=== PATIENT | female | born 1955 | race Caucasian/White ===

== ENCOUNTER 2017-10-22 18:47 | Observation (INO) | payer OTHER ==
[~2017-10-22] VITALS: Ht 157.5 cm; Wt 93.8 kg
[~2017-10-22 18:47] MED LIST: ALBU.083IS; ALBU.083IS IH; ALBU90OI; ALBU90OI6 INH; ALKA-SELTZER; AVANDAMET; AZIT250 PO; Advair Hfa 230-12 GM INH; BUDE.5 INH; CEFP200 PO; CETI10; CIPR500; CODGUAEL PO; Crutch1 EACH MISC; FLUSAL5005; FLUSAL5005 INH; FLUTICASONE FUROATE; Flecainide Acet50 MG PO; Flonase 0.05% N16 GM; GABA300 PO; GLIP10ER PO; GLIP5 PO; GUAI100SY PO; GUAIFENESIN-CODE5 ML; Humalog100 UNIT/1 SC; INS70/30PN; INSLI100I SC; INSUASPI SC; INSULANI SC; INSULANPEN SC; LEVFLO500 PO; LEVSOD75 PO; LOSA25 PO; LOSA50 PO; Lantus100 UNIT/1 SC; METF500; METF500 PO; METF500C; METF500C PO; MONT10T PO; MUPI1NAS; Norco 5-325 Ta1 EACH PO; OMEPRAZOLE MAGN20 MG PO; Omeprazole20 M1 PO; PRED10 PO; PRED20 PO; PSEU120ER PO; ROSI4; SUCR1SU PO; Synthroid175 MCG PO; TIOT18 INH; TOUJEO SOL300 UNIT/1 SC; TRULICITY0.75 MG/0. SC; Tambocor100 MG PO; Tylenol325 MG PO; VERA180ER PO; VERA240ER PO; VERA80 PO; Vanadom350 MG PO; Ventolin Soln3 ML INH; XARELTO20 MG PO; ZYRTEC10 M2 PO; Zithromax500 MG PO; [UNRECOGNIZED DRUG - OTHER]; [UNRECOGNIZED DRUG - OTHER] PO
[2017-10-22 19:20] LABS: Calcium, Ionized (POC) 1.16 mmol/L (1.10-1.46); Chloride (POC) 101 mmol/L (98-108); Creatinine (POC) 1.5 mg/dL (0.6-1.0); Glucose (ISTAT POC) 410 mg/dL (70-99); Hemoglobin (POC) 11.6 g/dL (12.0-16.0); Potassium (POC) 5.7 mmol/L (3.5-5.5); Sodium (POC) 136 mmol/L (135-148); Total CO2 (POC) 23 mmol/L (21-32)
[2017-10-22 19:48] LABS: Alanine Aminotransfer (ALT/SGP 33 U/L (12-78); Albumin, Blood 3.2 g/dL (3.4-5.0); Albumin/Globulin Ratio 0.9 (0.8-1.8); Alk Phos 49 U/L (50-136); Anion Gap 8 mmol/L (6-16); Aspartate Aminotrans (AST/SGOT 28 U/L (12-37); Bilirubin, Total 0.3 mg/dL (0.1-1.0); Blood Urea Nitrogen 34 mg/dL (8-24); Bun/Creatinine Ratio 22.4 (12.0-20.0); CO2, Blood 23 mmol/L (21-32); Calcium, Blood 8.7 mg/dL (8.5-10.1); Chloride, Blood 104 mmol/L (98-108); Creatinine, Blood 1.52 mg/dL (0.40-1.00); Globulin, Blood 3.7 g/dL (2.2-4.0); Glomerular Filtration Rate 37 (60-); Glucose, Blood 409 mg/dL (70-99); Potassium, Blood 5.7 mmol/L (3.5-5.5); Sodium, Blood 135 mmol/L (136-145); Total Protein, Blood 6.9 g/dL (6.4-8.2); Troponin I <0.015 ng/mL (0.000-0.040)
[2017-10-22 19:50] LABS: BASOPHILS ABSOLUTE AUTO 0.09 K/mm3 (0.00-0.23); BASOPHILS PERCENT AUTO 1 % (0-2); EOSINOPHILS ABSOLUTE AUTO 0.24 K/mm3 (0.00-0.68); EOSINOPHILS PERCENT AUTO 2 % (0-6); Hematocrit 34.4 % (33.0-51.0); Hemoglobin 11.6 g/dL (11.5-16.0); IMMATURE GRAN ABSOLUTE AUTO 0.09 K/mm3 (0.00-0.10); IMMATURE GRAN PERCENT AUTO 1 % (0-1); LYMPHOCYTES ABSOLUTE AUTO 2.04 K/mm3 (0.84-5.20); LYMPHOCYTES PERCENT AUTO 18 % (21-46); MONOCYTES ABSOLUTE AUTO 0.47 K/mm3 (0.16-1.47); MONOCYTES PERCENT AUTO 4 % (4-13); Mean Corpuscular HGB 29.5 pg (26.0-34.0); Mean Corpuscular HGB Conc 33.7 g/dL (31.5-36.5); Mean Corpuscular Volume 88 fL (80-100); NEUTROPHILS ABSOLUTE AUTO 8.63 K/mm3 (1.96-9.15); NEUTROPHILS PERCENT AUTO 75 % (41-73); Platelet Count 265 K/mm3 (150-400); RDW Standard Deviation 41.4 fL (35.1-46.3); Red Blood Cell Count 3.93 M/mm3 (3.80-5.20); White Blood Cell Count 11.56 K/mm3 (4.00-11.30)
[2017-10-22] MEDS ORDERED: Advair Hfa 230-12 GM INH (21:53)
[2017-10-22] MEDS ORDERED: Synthroid/Levo0.2 MG PO (21:53)
[2017-10-22] MEDS ORDERED: ZILEUTON PO (21:53)
[2017-10-22] MEDS ORDERED: LEVO-T25 MCG PO (21:54)
[2017-10-23 01:22] LABS: Source, Urine Clean Catch
[2017-10-23 01:30] LABS: Bilirubin, Urine Neg (Neg); Blood, Urine 1+ (Neg); Glucose Qualitative, Urine 4+ (Neg); Ketones, Urine Neg (Neg); Leukocyte Esterase, Urine Neg (Neg); Nitrite, Urine Pos (Neg); Protein, Urine 2+ (Neg); Specific Gravity, Urine 1.015 (1.003-1.022); Urobilinogen, Urine NORM (Normal)
[2017-10-23 01:48] LABS: Appearance, Urine Hazy (Clear); Bacteria Many /hpf; Color, Urine Yellow (P-Yellow); Red Blood Cells, Urine 0-2 /hpf (0-2); Squamous Epithelial Cells Few /hpf (Few); White Blood Cells, Urine 0-2 /hpf (0-5); Yeast/Fungi Urine Few /hpf
[2017-10-23 05:24] LABS: Hemoglobin 10.6 g/dL (11.5-16.0); Mean Corpuscular HGB 28.8 pg (26.0-34.0); Mean Corpuscular HGB Conc 33.1 g/dL (31.5-36.5); Mean Corpuscular Volume 87 fL (80-100); Mean Platelet Volume 10.3 fL (9.1-12.4); Platelet Count 204 K/mm3 (150-400); RDW Standard Deviation 41.1 fL (35.1-46.3); Red Blood Cell Count 3.68 M/mm3 (3.80-5.20); White Blood Cell Count 10.89 K/mm3 (4.00-11.30)
[2017-10-23 05:44] LABS: Albumin/Globulin Ratio 0.9 (0.8-1.8); Bilirubin, Total 0.3 mg/dL (0.1-1.0); Bun/Creatinine Ratio 25.4 (12.0-20.0); Calcium, Blood 8.4 mg/dL (8.5-10.1); Creatinine, Blood 1.18 mg/dL (0.40-1.00); Globulin, Blood 3.4 g/dL (2.2-4.0); Potassium, Blood 4.6 mmol/L (3.5-5.5); Total Protein, Blood 6.4 g/dL (6.4-8.2)
== END 2017-10-23 14:23 | disposition home or self-care (01) ==
LOC: ER 18:47 → MEDS 18:48 → ENPENDDIS 10-23 10:00 → MEDS 10-23 14:23
PROVIDERS: Emergency Medicine; Internal Medicine
DX: K52.9 Noninfective gastroenteritis and colitis, unspecified (principal); N17.9 Acute kidney failure, unspecified; E11.65 Type 2 diabetes mellitus with hyperglycemia; E87.5 Hyperkalemia; J45.909 Unspecified asthma, uncomplicated; I48.91 Unspecified atrial fibrillation; E78.5 Hyperlipidemia, unspecified; G47.30 Sleep apnea, unspecified; Z79.4 Long term (current) use of insulin; Z79.01 Long term (current) use of anticoagulants; Z79.899 Other long term (current) drug therapy; Z91.041 Radiographic dye allergy status; Z91.048 Other nonmedicinal substance allergy status; Z88.8 Allergy status to other drugs, medicaments and biological substances
CPT/HCPCS: 36415; 71046; 74176; 76705; 80047; 80053; 81001; 82947; 83690; 84484; 85014; 85025; 85027; 87070; 87077; 87086; 87186; 94640; 94760; 96361; 96372; 96374; 96375; 99285-25; G0378; J0610; J1650; J1815; J7030

== ENCOUNTER 2018-05-17 13:43 | Emergency (ER) | payer OTHER ==
[~2018-05-17] VITALS: Ht 157.5 cm; Wt 87.5 kg
[~2018-05-17 13:43] MED LIST changes: +LEVO-T25 MCG PO; +Synthroid/Levo0.2 MG PO; +ZILEUTON PO
[2018-05-17 15:45] LABS: BASOPHILS PERCENT AUTO 1 % (0-2); EOSINOPHILS ABSOLUTE AUTO 0.65 K/mm3 (0.00-0.68); EOSINOPHILS PERCENT AUTO 8 % (0-6); Hematocrit 37.9 % (33.0-51.0); Hemoglobin 12.5 g/dL (11.5-16.0); IMMATURE GRAN ABSOLUTE AUTO 0.02 K/mm3 (0.00-0.10); IMMATURE GRAN PERCENT AUTO 0 % (0-1); LYMPHOCYTES ABSOLUTE AUTO 2.24 K/mm3 (0.84-5.20); LYMPHOCYTES PERCENT AUTO 28 % (21-46); MONOCYTES ABSOLUTE AUTO 0.87 K/mm3 (0.16-1.47); MONOCYTES PERCENT AUTO 11 % (4-13); Mean Corpuscular Volume 85 fL (80-100); Mean Platelet Volume 9.4 fL (9.1-12.4); NEUTROPHILS ABSOLUTE AUTO 4.21 K/mm3 (1.96-9.15); NEUTROPHILS PERCENT AUTO 52 % (41-73); Platelet Count 285 K/mm3 (150-400); RDW Coefficient Variation 12.8 % (11.7-14.2); RDW Standard Deviation 39.5 fL (35.1-46.3); Red Blood Cell Count 4.47 M/mm3 (3.80-5.20); White Blood Cell Count 8.09 K/mm3 (4.00-11.30)
[2018-05-17 16:08] LABS: Alanine Aminotransfer (ALT/SGP 24 U/L (12-78); Albumin, Blood 3.3 g/dL (3.4-5.0); Albumin/Globulin Ratio 0.7 (0.8-1.8); Alk Phos 47 U/L (50-136); Anion Gap 10 mmol/L (6-16); Aspartate Aminotrans (AST/SGOT 18 U/L (12-37); Bilirubin, Total 0.3 mg/dL (0.1-1.0); Blood Urea Nitrogen 18 mg/dL (8-24); CO2, Blood 24 mmol/L (21-32); Calcium, Blood 9.1 mg/dL (8.5-10.1); Chloride, Blood 103 mmol/L (98-108); Creatinine, Blood 0.86 mg/dL (0.40-1.00); Globulin, Blood 4.5 g/dL (2.2-4.0); Glomerular Filtration Rate >60 (60-); Glucose, Blood 282 mg/dL (70-99); Sodium, Blood 137 mmol/L (136-145); Total Protein, Blood 7.8 g/dL (6.4-8.2); Troponin I <0.015 ng/mL (0.000-0.040)
== END 2018-05-17 17:03 | disposition home or self-care (01) ==
LOC: ER 13:43
PROVIDERS: Physician Assistant
DX: J11.1 Influenza due to unidentified influenza virus with other respiratory manifestations (principal); E11.9 Type 2 diabetes mellitus without complications; Z88.6 Allergy status to analgesic agent; Z88.8 Allergy status to other drugs, medicaments and biological substances; Z91.048 Other nonmedicinal substance allergy status; Z79.899 Other long term (current) drug therapy; Z79.4 Long term (current) use of insulin; I48.91 Unspecified atrial fibrillation; J45.909 Unspecified asthma, uncomplicated; E78.5 Hyperlipidemia, unspecified
CPT/HCPCS: 36415; 71046; 80053; 83880; 84484; 85025; 93005; 93010; 94640; 99285-25

== ENCOUNTER 2018-07-20 21:45 | Inpatient (IN) | payer OTHER ==
[~2018-07-20] VITALS: Ht 157.5 cm; Wt 88.1 kg
[2018-07-20 23:14] LABS: Source, Urine Clean Catch
[2018-07-20 23:16] LABS: Bilirubin, Urine Neg (Neg); Blood, Urine 2+ (Neg); Glucose Qualitative, Urine 4+ (Neg); Ketones, Urine 2+ (Neg); Leukocyte Esterase, Urine 1+ (Neg); Nitrite, Urine Pos (Neg); Protein, Urine 3+ (Neg); Urobilinogen, Urine NORM (Normal)
[2018-07-20 23:21] LABS: Appearance, Urine Clear (Clear); Color, Urine Yellow (P-Yellow)
[2018-07-20 23:22] LABS: Bacteria Many /hpf; Red Blood Cells, Urine 0-2 /hpf (0-2); Squamous Epithelial Cells Few /hpf (Few)
[2018-07-20 23:32] LABS: BASOPHILS ABSOLUTE AUTO 0.07 K/mm3 (0.00-0.23); BASOPHILS PERCENT AUTO 1 % (0-2); EOSINOPHILS PERCENT AUTO 1 % (0-6); Hematocrit 42.2 % (33.0-51.0); Hemoglobin 13.6 g/dL (11.5-16.0); IMMATURE GRAN ABSOLUTE AUTO 0.07 K/mm3 (0.00-0.10); IMMATURE GRAN PERCENT AUTO 1 % (0-1); LYMPHOCYTES PERCENT AUTO 10 % (21-46); MONOCYTES ABSOLUTE AUTO 0.38 K/mm3 (0.16-1.47); MONOCYTES PERCENT AUTO 3 % (4-13); Mean Corpuscular HGB 27.4 pg (26.0-34.0); Mean Corpuscular HGB Conc 32.2 g/dL (31.5-36.5); Mean Corpuscular Volume 85 fL (80-100); Mean Platelet Volume 9.6 fL (9.1-12.4); NEUTROPHILS PERCENT AUTO 85 % (41-73); Platelet Count 442 K/mm3 (150-400); RDW Coefficient Variation 13.8 % (11.7-14.2); RDW Standard Deviation 42.7 fL (35.1-46.3); Red Blood Cell Count 4.96 M/mm3 (3.80-5.20); White Blood Cell Count 15.32 K/mm3 (4.00-11.30)
[2018-07-20 23:51] LABS: Albumin, Blood 3.9 g/dL (3.4-5.0); Albumin/Globulin Ratio 0.7 (0.8-1.8); Bilirubin, Total 0.3 mg/dL (0.1-1.0); Bun/Creatinine Ratio 16.7 (12.0-20.0); Calcium, Blood 9.7 mg/dL (8.5-10.1); Creatinine, Blood 1.08 mg/dL (0.40-1.00); Globulin, Blood 5.4 g/dL (2.2-4.0); Potassium, Blood 4.5 mmol/L (3.5-5.5); Total Protein, Blood 9.3 g/dL (6.4-8.2)
[2018-07-21 05:34] LABS: BASOPHILS ABSOLUTE AUTO 0.05 K/mm3 (0.00-0.23); BASOPHILS PERCENT AUTO 0 % (0-2); EOSINOPHILS ABSOLUTE AUTO 0.03 K/mm3 (0.00-0.68); EOSINOPHILS PERCENT AUTO 0 % (0-6); Hematocrit 40.3 % (33.0-51.0); Hemoglobin 13.1 g/dL (11.5-16.0); IMMATURE GRAN ABSOLUTE AUTO 0.06 K/mm3 (0.00-0.10); IMMATURE GRAN PERCENT AUTO 0 % (0-1); LYMPHOCYTES ABSOLUTE AUTO 1.42 K/mm3 (0.84-5.20); LYMPHOCYTES PERCENT AUTO 10 % (21-46); MONOCYTES ABSOLUTE AUTO 0.84 K/mm3 (0.16-1.47); MONOCYTES PERCENT AUTO 6 % (4-13); Mean Corpuscular HGB 27.6 pg (26.0-34.0); Mean Corpuscular HGB Conc 32.5 g/dL (31.5-36.5); Mean Corpuscular Volume 85 fL (80-100); Mean Platelet Volume 9.4 fL (9.1-12.4); NEUTROPHILS ABSOLUTE AUTO 11.21 K/mm3 (1.96-9.15); NEUTROPHILS PERCENT AUTO 82 % (41-73); Platelet Count 399 K/mm3 (150-400); RDW Coefficient Variation 13.7 % (11.7-14.2); RDW Standard Deviation 42.6 fL (35.1-46.3); Red Blood Cell Count 4.75 M/mm3 (3.80-5.20); White Blood Cell Count 13.61 K/mm3 (4.00-11.30)
[2018-07-21 06:10] LABS: Alanine Aminotransfer (ALT/SGP 23 U/L (12-78); Albumin, Blood 3.3 g/dL (3.4-5.0); Albumin/Globulin Ratio 0.7 (0.8-1.8); Alk Phos 59 U/L (50-136); Anion Gap 6 mmol/L (6-16); Aspartate Aminotrans (AST/SGOT 21 U/L (12-37); Bilirubin, Total 0.4 mg/dL (0.1-1.0); Blood Urea Nitrogen 17 mg/dL (8-24); Bun/Creatinine Ratio 17.2 (12.0-20.0); CO2, Blood 29 mmol/L (21-32); Calcium, Blood 9.5 mg/dL (8.5-10.1); Chloride, Blood 100 mmol/L (98-108); Creatinine, Blood 0.99 mg/dL (0.40-1.00); Glomerular Filtration Rate >60 (60-); Glucose, Blood 353 mg/dL (70-99); Potassium, Blood 4.6 mmol/L (3.5-5.5); Sodium, Blood 135 mmol/L (136-145); Total Protein, Blood 8.3 g/dL (6.4-8.2)
--- NOTE | 2018-07-21 06:28 | NUR ---
PT NEW ADMIT THIS AM FOR ABD PAIN/N/V/MARIO. PT VSS, HR IRREGULAR, PT DENIED CP/PRESSURE. LUNGS DIM W/AUDIBLE WHEEZING, PT DOES BECOME DYPSNEIC W/EXERTION. PT COTN TO STRUGGLE W/PAIN/N/V, UPDATED FOR ORDERS. PT UP IN ROOM .WSBA, NPO PER ORDERS. AT BEDSIDE. WILL CONT TO MONITOR UNTIL REP GIVEN TO ONCOMING RN.
--- NOTE | 2018-07-21 17:56 | NUR ---
SUMMARY NO ACUTE CHANGES T/O SHIFT. PT HYPERTENSIVE. CALLED DR SCHWARTZ AND OBTAINED ORDERS. MEDICATED PT ONCE DURING SHIFT W/ 10 MG IV HYDRALIZINE PER ORDERS. MEDICATED PER ORDERS T/O SHIFT FOR ABDOMINAL PAIN. COVERED CBG PER ORDERS. PT PLEASANT AND COOPERATIVE. FAMILY BROUGHT IN HOME MEDS. SENT TO PHARMACY FOR VERIFICATION.
--- NOTE | 2018-07-21 19:17 | NUR ---
REPORT GIVEN TO ONCOMING SHIFT.
[2018-07-22 05:28] LABS: BASOPHILS ABSOLUTE AUTO 0.08 K/mm3 (0.00-0.23); BASOPHILS PERCENT AUTO 0 % (0-2); EOSINOPHILS ABSOLUTE AUTO 0.16 K/mm3 (0.00-0.68); EOSINOPHILS PERCENT AUTO 1 % (0-6); Hematocrit 34.9 % (33.0-51.0); Hemoglobin 11.1 g/dL (11.5-16.0); IMMATURE GRAN ABSOLUTE AUTO 0.15 K/mm3 (0.00-0.10); IMMATURE GRAN PERCENT AUTO 1 % (0-1); LYMPHOCYTES ABSOLUTE AUTO 2.48 K/mm3 (0.84-5.20); LYMPHOCYTES PERCENT AUTO 11 % (21-46); MONOCYTES ABSOLUTE AUTO 2.58 K/mm3 (0.16-1.47); MONOCYTES PERCENT AUTO 12 % (4-13); Mean Corpuscular HGB 27.5 pg (26.0-34.0); Mean Corpuscular HGB Conc 31.8 g/dL (31.5-36.5); Mean Corpuscular Volume 87 fL (80-100); Mean Platelet Volume 9.8 fL (9.1-12.4); NEUTROPHILS ABSOLUTE AUTO 16.59 K/mm3 (1.96-9.15); NEUTROPHILS PERCENT AUTO 75 % (41-73); Platelet Count 367 K/mm3 (150-400); RDW Coefficient Variation 14.4 % (11.7-14.2); RDW Standard Deviation 45.5 fL (35.1-46.3); Red Blood Cell Count 4.03 M/mm3 (3.80-5.20); White Blood Cell Count 22.04 K/mm3 (4.00-11.30)
[2018-07-22 05:45] LABS: Albumin, Blood 2.8 g/dL (3.4-5.0); Anion Gap 6 mmol/L (6-16); Blood Urea Nitrogen 21 mg/dL (8-24); Bun/Creatinine Ratio 11.9 (12.0-20.0); CO2, Blood 27 mmol/L (21-32); Calcium, Blood 8.5 mg/dL (8.5-10.1); Chloride, Blood 102 mmol/L (98-108); Creatinine, Blood 1.77 mg/dL (0.40-1.00); Glomerular Filtration Rate 31 (60-); Glucose, Blood 236 mg/dL (70-99); Phosphorus, Blood 3.8 mg/dL (2.5-4.9); Potassium, Blood 4.2 mmol/L (3.5-5.5); Sodium, Blood 135 mmol/L (136-145)
--- NOTE | 2018-07-22 07:45 | NUR ---
SUMMARY PT NPO PREOP.WEARS PADS FPOR URINARY INCONT. BLADDER SCAN CONFIRMED EMPTYING. CREAT SLIGHTLY ELEVATED. DAY RN AGREES TO FOLLOW UP.IV FLUIDS INFUSING
--- NOTE | 2018-07-22 08:30 | NUR ---
INTO SDS RECIEVED REPORT FORM ASHWIN PENN RN. VSS BREATHING TX PER ORDERS ADMISSION TO UNIT STARTED
--- NOTE | 2018-07-22 10:23 | NUR ---
07/22/18 1023 Amaar Franco PT ON SCHEDULED ANTIBIOTICS
--- NOTE | 2018-07-22 12:56 | NUR ---
WAS GETTING READY TO TRANSPORT PT AND BP DROPPED INTO 80S/40S. OPENED FLUIDS WIDE, LAY PT BACK. PT STILL ANSWERING QUESTIONS NO COMPLAINTS. BP THEN DROPPED INTO 70/30S. RN VERIFIED 10MG IV EPHEDRINE WITH SECOND RN AND GAVE TO PT. PT IS SLEEPING AT THIS TIME.
--- NOTE | 2018-07-22 13:04 | NUR ---
BP FOLLOWS COMMANDS BP AFTER 10MG IV EPHEDRINE DOSE NOW 107/49. PT HAS BEEN TACHYPENIC SINCE ARRIVAL IN PACU. PT HAS CLEAR LUNGS AND IS FOLLOWING INSTUCTIONS TO CDB. PT DENIES PAIN. SATS DROPPED BELOW 90%. 3L 02 NC SATS NOW 92%. FLOOR RN HAS BEEN NOTIFIED OF PT STATUS.
--- NOTE | 2018-07-22 13:22 | NUR ---
PT CONTINUES TO REST QUIETLY STILL DENIES PAIN. 3L 02 SATS 93%. PT IS SLEEPY. RR 24-26. BP STABLE 113/[address] FARIA WILL BE NOTIFIED OF PT CHANGE IN STATUS. LUNGS SOUND ARE CLEAR BUT TIGHT. THERE IS AN ORDER FOR ALBUTEROL WANT TO ASK MD IF OKAY TO GIVE SINCE HR HIGH.
--- NOTE | 2018-07-22 13:49 | NUR ---
1325 DR FARIA TO BEDSIDE. HE WAS UPDATED OF PT STATUS. STATED TO GIVE PT ALBUTEROL THEN TO NOTIFY DR HENDERSON. 1331 RN CALLED HE CAME TO BEDSIDE TO SEE PT. MD WAS UPDATED OF PT STATUS CHANGE. AWARE OF CHANGE IN SATS, RESP STATUS, EPHEDRINE GIVEN. PT IS LETHARGIC WILL STILL WAKE TO QUESTIONS AND FOLLOW DIRECTIONS. STATED TO PLACE LABS ORDERS FOR CMP,CBC, TROP X1, CXR, AND EKG. RN COMPLETED EKG AND GAVE TO DR HENDERSON HE STATED TO CALL HOSPITALIST AND NOTIFY OF PT STATUS. NO OTHER ORDERS FROM 1345 RN CALLED AND SPOKE TO DR BOYKIN UPDATED ON PT STATUS CHANGE POST-OP. MD AWARE OF DR HENDERSON ORDERS. SHE AGREED TO PT BEING TRANSFER TO PCU. CXR HAS BEEN DONE. WILL CALL AND GIVE RN REPORT.
--- NOTE | 2018-07-22 14:02 | NUR ---
REPORT GIVEN TO FLOOR CHARGE NURSE (BYRON). PT WILL BE GOING TO PCU9. WILL NOTIFY RN 226 PT WILL NOT BE RETURNING. PT NOW SHOULD BE GOING TO A MORE APPROPRIATE FLOOR OF CARE OF PT CHANGE IN STATUS.
[2018-07-22 14:09] LABS: BASOPHILS ABSOLUTE AUTO 0.06 K/mm3 (0.00-0.23); BASOPHILS PERCENT AUTO 0 % (0-2); EOSINOPHILS ABSOLUTE AUTO 0.02 K/mm3 (0.00-0.68); EOSINOPHILS PERCENT AUTO 0 % (0-6); Hematocrit 32.1 % (33.0-51.0); Hemoglobin 10.3 g/dL (11.5-16.0); IMMATURE GRAN ABSOLUTE AUTO 0.22 K/mm3 (0.00-0.10); IMMATURE GRAN PERCENT AUTO 1 % (0-1); LYMPHOCYTES ABSOLUTE AUTO 0.89 K/mm3 (0.84-5.20); LYMPHOCYTES PERCENT AUTO 4 % (21-46); MONOCYTES ABSOLUTE AUTO 0.61 K/mm3 (0.16-1.47); MONOCYTES PERCENT AUTO 3 % (4-13); Mean Corpuscular HGB 27.8 pg (26.0-34.0); Mean Corpuscular HGB Conc 32.1 g/dL (31.5-36.5); Mean Corpuscular Volume 87 fL (80-100); Mean Platelet Volume 9.9 fL (9.1-12.4); NEUTROPHILS ABSOLUTE AUTO 19.27 K/mm3 (1.96-9.15); NEUTROPHILS PERCENT AUTO 92 % (41-73); Platelet Count 327 K/mm3 (150-400); RDW Coefficient Variation 14.6 % (11.7-14.2); RDW Standard Deviation 46.3 fL (35.1-46.3); Red Blood Cell Count 3.71 M/mm3 (3.80-5.20); White Blood Cell Count 21.07 K/mm3 (4.00-11.30)
--- NOTE | 2018-07-22 14:09 | NUR ---
REPORT RECEIVED FROM BYRON VIGIL (WHO RECEIVED REPORT FROM PACU)
--- NOTE | 2018-07-22 14:15 | NUR ---
PT TO ROOM PCU9 FROM PACU. PT VERY DROWSY, FULL ASSIST TO BED WITH SLIDE SHEET.
--- NOTE | 2018-07-22 14:23 | NUR ---
FAMILY TO ROOM.
[2018-07-22 14:37] LABS: Alanine Aminotransfer (ALT/SGP 41 U/L (12-78); Albumin, Blood 2.4 g/dL (3.4-5.0); Albumin/Globulin Ratio 0.6 (0.8-1.8); Alk Phos 53 U/L (50-136); Anion Gap 9 mmol/L (6-16); Aspartate Aminotrans (AST/SGOT 103 U/L (12-37); Bilirubin, Total 0.6 mg/dL (0.1-1.0); Blood Urea Nitrogen 23 mg/dL (8-24); CO2, Blood 22 mmol/L (21-32); Calcium, Blood 7.9 mg/dL (8.5-10.1); Chloride, Blood 105 mmol/L (98-108); Creatinine, Blood 1.91 mg/dL (0.40-1.00); Glomerular Filtration Rate 28 (60-); Glucose, Blood 309 mg/dL (70-99); Potassium, Blood 4.5 mmol/L (3.5-5.5); Sodium, Blood 136 mmol/L (136-145); Total Protein, Blood 6.4 g/dL (6.4-8.2); Troponin I <0.015 ng/mL (0.000-0.040)
--- NOTE | 2018-07-22 14:43 | NUR ---
PT LINENS AND DRESSING TO ABD SATURATED. ALL LINENS CHANGED, NEW DRESSING PLACED TO LAP SITE ON RIGHT LOWER PORTION OF ABD. PT [place] WELL. PLACED IN NEW GOWN. VSS. FAMILY PRESENT. PT ABLE TO ANSWER QUESTIONS.
--- NOTE | 2018-07-22 15:22 | NUR ---
IVF STARTED PER EMAR. MISSED PO MORNING MEDS GIVEN PER EMAR FOR AFIB. WATER PROVIDED TO PT AND PT FAMILY. PT DENIES PAIN. JOSE.
--- NOTE | 2018-07-22 15:56 | NUR ---
DR HENDERSON TO ROOM FOR RE-EVAL. PROVIDER AWARE OF DRAINAGE FROM LAP SITE.
--- NOTE | 2018-07-22 16:34 | NUR ---
FLAGYL STARTED PER EMAR. CBG 357, VS CHARTED. BP LOW, WILL RECHECK. PT FAMILY AT BEDSIDE.
--- NOTE | 2018-07-22 17:05 | NUR ---
DR BOYKIN AWARE OF PT BP, ORDER FOR 500ML NS BOLUS AND TO KEEP PROVIDER AWARE OF BP.
--- NOTE | 2018-07-22 17:52 | NUR ---
VS CHARTED, 500ML BOLUS COMPLETE. PT ATE ALL CLEAR LIQUID, INTERACTING WELL WITH STAFF AND FAMILY. DENIES PAIN, DENIES NAUSEA.
--- NOTE | 2018-07-22 18:21 | NUR ---
PT ASSISTED BACK TO BED. VSS. PT FAMILY TO ROOM. SPOKE WITH DR HENDERSON. PROVIDER ORDERED STAT CBC.
--- NOTE | 2018-07-22 18:36 | NUR ---
2ND IVF BOLUS STARTED. LAB TO ROOM FOR DRAW.
--- NOTE | 2018-07-22 18:40 | NUR ---
DR BOYKIN TO ROOM FOR EVAL. BLADDER SCAN 109ML.
[2018-07-22 18:47] LABS: BASOPHILS ABSOLUTE AUTO 0.04 K/mm3 (0.00-0.23); BASOPHILS PERCENT AUTO 0 % (0-2); EOSINOPHILS PERCENT AUTO 0 % (0-6); Hematocrit 32.7 % (33.0-51.0); Hemoglobin 10.4 g/dL (11.5-16.0); IMMATURE GRAN ABSOLUTE AUTO 0.18 K/mm3 (0.00-0.10); IMMATURE GRAN PERCENT AUTO 1 % (0-1); LYMPHOCYTES ABSOLUTE AUTO 0.77 K/mm3 (0.84-5.20); LYMPHOCYTES PERCENT AUTO 4 % (21-46); MONOCYTES ABSOLUTE AUTO 0.53 K/mm3 (0.16-1.47); MONOCYTES PERCENT AUTO 2 % (4-13); Mean Corpuscular HGB 28.2 pg (26.0-34.0); Mean Corpuscular HGB Conc 31.8 g/dL (31.5-36.5); Mean Corpuscular Volume 89 fL (80-100); Mean Platelet Volume 9.8 fL (9.1-12.4); NEUTROPHILS ABSOLUTE AUTO 20.34 K/mm3 (1.96-9.15); NEUTROPHILS PERCENT AUTO 93 % (41-73); Platelet Count 291 K/mm3 (150-400); RDW Coefficient Variation 14.5 % (11.7-14.2); RDW Standard Deviation 46.5 fL (35.1-46.3); Red Blood Cell Count 3.69 M/mm3 (3.80-5.20); White Blood Cell Count 21.86 K/mm3 (4.00-11.30)
[2018-07-22 23:27] LABS: Glucose, Blood 592 mg/dL (70-99)
[2018-07-23 02:44] LABS: Glucose, Blood 589 mg/dL (70-99)
[2018-07-23 06:03] LABS: BASOPHILS ABSOLUTE AUTO 0.04 K/mm3 (0.00-0.23); BASOPHILS PERCENT AUTO 0 % (0-2); EOSINOPHILS PERCENT AUTO 0 % (0-6); Hematocrit 31.6 % (33.0-51.0); Hemoglobin 10.2 g/dL (11.5-16.0); IMMATURE GRAN ABSOLUTE AUTO 0.19 K/mm3 (0.00-0.10); IMMATURE GRAN PERCENT AUTO 1 % (0-1); LYMPHOCYTES ABSOLUTE AUTO 1.02 K/mm3 (0.84-5.20); LYMPHOCYTES PERCENT AUTO 5 % (21-46); MONOCYTES ABSOLUTE AUTO 1.24 K/mm3 (0.16-1.47); MONOCYTES PERCENT AUTO 6 % (4-13); Mean Corpuscular HGB 27.3 pg (26.0-34.0); Mean Corpuscular HGB Conc 32.3 g/dL (31.5-36.5); Mean Platelet Volume 9.8 fL (9.1-12.4); NEUTROPHILS ABSOLUTE AUTO 18.17 K/mm3 (1.96-9.15); NEUTROPHILS PERCENT AUTO 88 % (41-73); Platelet Count 230 K/mm3 (150-400); RDW Coefficient Variation 14.5 % (11.7-14.2); Red Blood Cell Count 3.73 M/mm3 (3.80-5.20); White Blood Cell Count 20.66 K/mm3 (4.00-11.30)
[2018-07-23 06:05] LABS: Mean Corpuscular Volume 85 fL (80-100)
--- NOTE | 2018-07-23 06:50 | NUR ---
LYING IN SEMI FOWLERS WITH EYES OPEN WHILE WATCHING TV WITH THE SPOUSE AT BEDSIDE. COFFEE AND WATER PROVIDED PER REQUEST. PT WAS ASSISTED TO BSC AND URINATED 200ML DARK BROWN URINE. THIS IS THE FIRST URINATION SINCE RETURN FROM SURGERY. BLADDER SCAN X2 THROUGHOUT SHIFT DONE. FIRST SHOWED 300ML IN BLADDER. SECOND SHOWED 428ML. PT WAS ENCOURAGED TO SIT ON BSC AND TRY. DENIES PAIN, DISCOMFORT, OR FURTHER NEEDS AT THIS TIME. NO FURTHER CHANGES SINCE START OF SHIFT. SAFETY MESURES IN PLACE. WILL GIVE HAND OFF TO ONCOMING SHIFT UING SBAR.
[2018-07-23 07:05] LABS: Albumin, Blood 2.2 g/dL (3.4-5.0); Anion Gap 10 mmol/L (6-16); Blood Urea Nitrogen 35 mg/dL (8-24); Bun/Creatinine Ratio 18.9 (12.0-20.0); CO2, Blood 17 mmol/L (21-32); Calcium, Blood 7.4 mg/dL (8.5-10.1); Chloride, Blood 107 mmol/L (98-108); Creatinine, Blood 1.85 mg/dL (0.40-1.00); Glomerular Filtration Rate 29 (60-); Phosphorus, Blood 3.5 mg/dL (2.5-4.9); Potassium, Blood 4.2 mmol/L (3.5-5.5); Sodium, Blood 134 mmol/L (136-145)
[2018-07-23 08:23] LABS: Glucose, Blood 497 mg/dL (70-99)
[2018-07-23 11:49] LABS: Glucose, Blood 554 mg/dL (70-99)
[2018-07-23 14:31] LABS: Albumin, Blood 2.3 g/dL (3.4-5.0); Anion Gap 10 mmol/L (6-16); Blood Urea Nitrogen 37 mg/dL (8-24); Bun/Creatinine Ratio 22.7 (12.0-20.0); CO2, Blood 19 mmol/L (21-32); Calcium, Blood 7.7 mg/dL (8.5-10.1); Chloride, Blood 106 mmol/L (98-108); Creatinine, Blood 1.63 mg/dL (0.40-1.00); Glomerular Filtration Rate 34 (60-); Glucose, Blood 506 mg/dL (70-99); Phosphorus, Blood 2.9 mg/dL (2.5-4.9); Potassium, Blood 3.7 mmol/L (3.5-5.5); Sodium, Blood 135 mmol/L (136-145)
--- NOTE | 2018-07-23 15:22 | NUR ---
SUMMARY PT IS A/O X4, PLEASANT AFFECT, UP SBA TO BR. DR HENDERSON IN THIS AM TO ASSESS LAP CHOLY SITES X4, NO DRAINAGE OR REDNESS. DR STATE MAY REMOVE DRSG, OPEN TO AIR W STERI STRIPS. ORDER DIET ADV [place], PT STATE SOFT FOODS, MENU PROVIDED. @ ONSET OF SHIFT BLOOD SUGAR >500, LAB CONFIRM 497, DR BOYKIN NOTIFIED, ADJUST INSULIN ORDERS, ORDER NS 500ML BOLUS, INCREASE CONTINUOS RATE TO 150 ML/HR. RECHECKED 1HR >500, LAB CONFIRM 554, ORDER 5 UNIT EXTRA HUMALOG KWIK & RECHECK 1HR. RECHECK 486, HSS 18 UNIT GIVEN /DR, RECHECK 1HR. RECHECK 459, DR ORDER 5 UNIT & RECHECK 2HR. VSS THIS AM STABLE W SBP 110'S, HR 73-AFIB/TELE. THIS AFTERNOON VS CONTINUE STABLE. IV ANTIBX CONTINUE. PT HAS BEEN UP TO BR THIS AFTERNOON, URINE DRK MAYITO.
--- NOTE | 2018-07-23 19:26 | NUR ---
SUMMARY NEW ER ADMIT LATE AFTERNOON. HE IS A/O X4, PLEASANT/COOPERATIVE AFFECT. IND/SBA TO BR, GAIT STEADY. DX PANCREATITIS, LIPASE 1638. NPO X ICE CHIPS @ THIS TIME, PT STATE HX PANCREATITIS, FAMILIAR W TX. STATE 2-3 ETOH DRINKS/DAY CIWA ZERO @ THIS TIME. STATE L UPPER ABD PAIN. DR CHAN CONSULTED IN TO SEE PT, PLACE NEW ORDERS FOR PAIN MEDICATION, INCREASE IV NS RATE TO 150 ML/HR. RADIOLOGY SHOW THROMBOSIS DISTAL PORTAL VEIN, DR BOYKIN ORDER HEP GTT, PHARMACY DOSE, INFUSING @ 25.2 ML/HR. BP ELEVATED IN ER 232/122, DR BOYKIN ORDER HYDRALAZINE, 20 MG IV GIVEN, BP @ 195/112.
--- NOTE | 2018-07-24 01:00 | NUR ---
0100 DR. BANUELOS NOTIFIED PT IN A FIB; HX OF A FIB. SYSTOLIC BP 120-130'S AND HR IN 80'S. WCTM.
--- NOTE | 2018-07-24 04:30 | NUR ---
SHIFT SUMMARY PT A&O X4 T/O SHIFT. POD#2 LAP MARIO; ALL SITES CDI; ABD SOFT; BT X4; PT DENIES FLATUS. PT DENIES PAIN. RA; HOME CPAP WHILE ASLEEP FOR PART OF NIGHT. CONT. OXIMETRY IN PLACE; O2 SATS OVER 90% T/O SHIFT. PT DENIES CP, NAUSEA AND SOB T/O SHIFT. VSS; TELEMETRY IN PLACE, A FIB PER LIQUID FERTILIZER SERVICER; PROVIDER NOTIFIED. SCD'S TO BLE'S. BLOOD GLUCOSE MANAGED PER ORDERS. UP WITH SBA TO TOILET. SIDE RAILS X3; CALL LIGHT IN REACH; PT DEMONSTRATES USE. WCTM UNTIL REPORT TO DAY SHIFT RN.
[2018-07-24 05:05] LABS: BASOPHILS ABSOLUTE AUTO 0.03 K/mm3 (0.00-0.23); BASOPHILS PERCENT AUTO 0 % (0-2); EOSINOPHILS PERCENT AUTO 0 % (0-6); Hematocrit 31.6 % (33.0-51.0); Hemoglobin 10.1 g/dL (11.5-16.0); IMMATURE GRAN PERCENT AUTO 1 % (0-1); LYMPHOCYTES ABSOLUTE AUTO 1.11 K/mm3 (0.84-5.20); LYMPHOCYTES PERCENT AUTO 4 % (21-46); MONOCYTES ABSOLUTE AUTO 0.78 K/mm3 (0.16-1.47); MONOCYTES PERCENT AUTO 3 % (4-13); Mean Corpuscular HGB 27.4 pg (26.0-34.0); Mean Corpuscular Volume 86 fL (80-100); Mean Platelet Volume 9.8 fL (9.1-12.4); NEUTROPHILS PERCENT AUTO 92 % (41-73); Platelet Count 302 K/mm3 (150-400); RDW Coefficient Variation 14.6 % (11.7-14.2); RDW Standard Deviation 45.6 fL (35.1-46.3); Red Blood Cell Count 3.68 M/mm3 (3.80-5.20); White Blood Cell Count 25.72 K/mm3 (4.00-11.30)
[2018-07-24 05:23] LABS: Albumin, Blood 2.3 g/dL (3.4-5.0); Anion Gap 7 mmol/L (6-16); Blood Urea Nitrogen 33 mg/dL (8-24); Bun/Creatinine Ratio 26.8 (12.0-20.0); CO2, Blood 20 mmol/L (21-32); Calcium, Blood 7.6 mg/dL (8.5-10.1); Chloride, Blood 112 mmol/L (98-108); Creatinine, Blood 1.23 mg/dL (0.40-1.00); Glomerular Filtration Rate 47 (60-); Glucose, Blood 247 mg/dL (70-99); Phosphorus, Blood 2.5 mg/dL (2.5-4.9); Potassium, Blood 3.8 mmol/L (3.5-5.5); Sodium, Blood 139 mmol/L (136-145)
--- NOTE | 2018-07-24 10:06 | NUR ---
BEGINNING OF SHIFT Assumed care of pt at 0700. Report received from Laila VIGIL. Pt on room air. Pt assisted to chair before breakfast. Shift assessment completed. Dr Childress in to see patient. Pt states desire to go home today. Plans for patient to go home. Bed in lowest positon. Call light in reach. Pt denies need at this time. Will continue to update pt as discharge planning progresses.
[2018-07-24] MEDS ORDERED: CEPH500 PO (13:14)
--- NOTE | 2018-07-24 14:40 | NUR ---
SUMMARY Pt discharged from unit at 1408 via wheelchair accompanied by her spouse. Medications called to [facility] in [place]. Pt verbalizes understanding that this pharmacy does not open until tomorrow. Discharge education provided. Pt verbalizes understanding. Home meds returned to patient prior to discharge.
== END 2018-07-24 14:10 | disposition home or self-care (01) | DRG 854 ==
LOC: ER 21:45 → PCU 21:46 → SURS 21:46 → PCU 07-21 05:30 → SURS 07-21 05:30 → PCU 07-22 14:01
PROVIDERS: Emergency Medicine; Family Medicine; Surgery; ADMIT Hospitalist
PROC: BF131ZZ Fluoroscopy of Gallbladder and Bile Ducts using Low Osmolar Contrast (ICD-10-PCS; 2018-07-22)
PROC: 0FT44ZZ Resection of Gallbladder, Percutaneous Endoscopic Approach (ICD-10-PCS; principal; 2018-07-22 10:00)
DX: A41.9 Sepsis, unspecified organism (principal); K80.00 Calculus of gallbladder with acute cholecystitis without obstruction; E87.1 Hypo-osmolality and hyponatremia; N39.0 Urinary tract infection, site not specified; N17.9 Acute kidney failure, unspecified; J45.909 Unspecified asthma, uncomplicated; I48.91 Unspecified atrial fibrillation; H40.9 Unspecified glaucoma; I10 Essential (primary) hypertension; E78.5 Hyperlipidemia, unspecified; Z79.4 Long term (current) use of insulin; G47.33 Obstructive sleep apnea (adult) (pediatric); K21.9 Gastro-esophageal reflux disease without esophagitis; E03.9 Hypothyroidism, unspecified; I95.81 Postprocedural hypotension; E11.65 Type 2 diabetes mellitus with hyperglycemia; M79.2 Neuralgia and neuritis, unspecified
CPT/HCPCS: 36415; 71045; 74176; 74300; 76705; 80053; 80069; 81001; 82947; 83605; 83690; 84484; 85025; 87077; 87081; 87086; 87186; 93005; 93010; 94640; 94762; 96365; 96375; 99285-25; J0295; J0360; J0696; J1100; J1170; J1815; J1885; J2250; J2370; J2405; J2704; J2710; J2765; J3010; J7030; J7120

== ENCOUNTER → 2018-08-04 | Outpatient (CLI) | payer OTHER ==
[~2018-08-04] MED LIST changes: +CEPH500 PO
[2018-08-04 10:59] LABS: Source, Urine Clean Catch
[2018-08-04 11:18] LABS: Appearance, Urine Clear (Clear); Bilirubin, Urine Neg (Neg); Blood, Urine 2+ (Neg); Color, Urine Yellow (P-Yellow); Glucose Qualitative, Urine 3+ (Neg); Ketones, Urine Neg (Neg); Leukocyte Esterase, Urine Neg (Neg); Nitrite, Urine Neg (Neg); Protein, Urine 3+ (Neg); Urobilinogen, Urine NORM (Normal)
[2018-08-04 11:37] LABS: Squamous Epithelial Cells Few /hpf (Few); White Blood Cells, Urine 0-2 /hpf (0-5)
[2018-08-04 11:38] LABS: Bacteria Not Seen /hpf
== END | disposition home or self-care (01) ==
LOC: LAB SHORT 10:57 → LAB 10:57
PROVIDERS: Surgery
DX: R39.89 Other symptoms and signs involving the genitourinary system (principal); R35.0 Frequency of micturition
CPT/HCPCS: 81001

== ENCOUNTER 2019-03-10 20:12 | Inpatient (IN) | payer OTHER ==
[~2019-03-10] VITALS: Ht 157.5 cm; Wt 92.2 kg
[2019-03-10 21:18] LABS: BASOPHILS ABSOLUTE AUTO 0.13 K/mm3 (0.00-0.23); BASOPHILS PERCENT AUTO 1 % (0-2); EOSINOPHILS ABSOLUTE AUTO 0.33 K/mm3 (0.00-0.68); EOSINOPHILS PERCENT AUTO 2 % (0-6); Hematocrit 40.1 % (33.0-51.0); Hemoglobin 13.1 g/dL (11.5-16.0); IMMATURE GRAN ABSOLUTE AUTO 0.17 K/mm3 (0.00-0.10); IMMATURE GRAN PERCENT AUTO 1 % (0-1); LYMPHOCYTES ABSOLUTE AUTO 2.92 K/mm3 (0.84-5.20); LYMPHOCYTES PERCENT AUTO 18 % (21-46); MONOCYTES ABSOLUTE AUTO 0.72 K/mm3 (0.16-1.47); MONOCYTES PERCENT AUTO 4 % (4-13); Mean Corpuscular HGB Conc 32.7 g/dL (31.5-36.5); Mean Corpuscular Volume 89 fL (80-100); Mean Platelet Volume 9.4 fL (9.1-12.4); NEUTROPHILS ABSOLUTE AUTO 12.04 K/mm3 (1.96-9.15); NEUTROPHILS PERCENT AUTO 74 % (41-73); Platelet Count 361 K/mm3 (150-400); RDW Coefficient Variation 13.6 % (11.7-14.2); RDW Standard Deviation 44.4 fL (35.1-46.3); Red Blood Cell Count 4.52 M/mm3 (3.80-5.20); White Blood Cell Count 16.31 K/mm3 (4.00-11.30)
[2019-03-10 21:37] LABS: Alanine Aminotransfer (ALT/SGP 20 U/L (12-78); Albumin, Blood 3.3 g/dL (3.4-5.0); Albumin/Globulin Ratio 0.8 (0.8-1.8); Alk Phos 58 U/L (50-136); Anion Gap 8 mmol/L (6-16); Aspartate Aminotrans (AST/SGOT 10 U/L (12-37); Bilirubin, Total 0.2 mg/dL (0.1-1.0); Blood Urea Nitrogen 24 mg/dL (8-24); Bun/Creatinine Ratio 27.5 (12.0-20.0); CO2, Blood 25 mmol/L (21-32); Calcium, Blood 8.8 mg/dL (8.5-10.1); Chloride, Blood 107 mmol/L (98-108); Creatinine, Blood 0.87 mg/dL (0.40-1.00); Globulin, Blood 4.3 g/dL (2.2-4.0); Glomerular Filtration Rate >60 (60-); Glucose, Blood 261 mg/dL (70-99); Potassium, Blood 4.4 mmol/L (3.5-5.5); Sodium, Blood 140 mmol/L (136-145); Total Protein, Blood 7.6 g/dL (6.4-8.2)
[2019-03-11] MEDS ORDERED: Synthroid137 MCG PO (01:27)
[2019-03-11] MEDS ORDERED: LEVSOD100 PO (01:28)
[2019-03-11 01:56] LABS: Influenza A Negative (NEGATIVE); Influenza B Negative (NEGATIVE)
--- NOTE | 2019-03-11 04:58 | NUR ---
NOC SHIFT SUMMARY PT IS ADMITTED THIS NIGHT FOR ASTHMA. SHE IS PLEASANT AND COOPERATIVE WITH CARE. AAOX4. SHE IS ON ROOM AIR AND RESP ARE EVEN. AUDIBLE WHEEZING CAN BE HEARD WHEN SHE EXCERTS HERSELF SUCH GETTING UP TO USE THE RESTROOM. VSS AT REST. SHE IS PRESENTLY SLEEPING AND APPEARS IN NO ACUTE DISTRESS. IS IN ROOM WITH HER AND IS SLEEPING IN RECLINER. WILL CONTINUE TO MONITOR.
--- NOTE | 2019-03-11 11:15 | NUR ---
SPOKE WITH DR. REYES ABOUT HER BLOOD SUGAR BEING ABOVE 400. DR. REYES STATED TO USE THE SLIDING SCALE 12 UNITS AND EXPLAIN TO THE PATIENT WHO HAS NOT USED THE SLIDING SCALE INSULIN THAT THIS IS TEMPORARY RELATED TO THE STEROIDS.
--- NOTE | 2019-03-11 17:11 | NUR ---
SHIFT SUMMARY PATIENT IS PLEASANT, ALERT AND ORIENTED INDEPENDENT. SHE DOES NOTE SOME SHORTNESS OF BREATH TODAY, BUT SHE STATES SHE FEELS LIKE IT IS NOT CURRENTLY IMPROVING. DENIES HEART PALPITATIONS, SHE IS ON STEROIDS WELL SHORT ACTING INSULIN TO CONTROL HER BLOOD SUGARS.
--- NOTE | 2019-03-12 04:45 | NUR ---
NOC SHIFT SUMMARY PT IS PLEASANT AND COOPERATIVE WITH CARE. SHE HAD HER SON AND DAUGHTER IN [place] VISIT THIS EVENING. SHE FELL TO SLEEP SHORTLY AFTER THEY LEFT AROUND 2300 AND HAS SLEPT THROUGH MUCH OF THE NIGHT. VSS. RESP APPEAR EVEN AND UNLABORED, THOUGH PT STATES SHE DOES NOT FEEL LIKE SHE HAS IMPROVED MUCH OVER YESTERDAY. WILL CONTINUE TO MONITOR.
[2019-03-12 11:54] LABS: Glucose, Blood 557 mg/dL (70-99)
--- NOTE | 2019-03-12 18:09 | NUR ---
SHIFT SUMMARY PATIENT PLEASANT, ALERT AND ORIENTED. INDEPENDENT IN THE ROOM. BLOOD SUGARS HIGH TODAY. PATIENT SWITCHED TO HIGH SLIDING SCALE WELL LANTUS.
--- NOTE | 2019-03-13 04:00 | NUR ---
ERP CONSULTANT SUMMARY PT A/O X4. INDEPENDENT IN ROOM. NO COMPLAINTS OF DISCOMFORTS. PT STARTED TO SLEEP IN THE LATER HALF OF THE SHIFT. LUNG SOUNDS CLEAR. NO SOB NOTED, EVEN RESPIRATIONS. NO ACUTE CHANGES, WILL CONTINUE TO MONITOR.
[2019-03-13] MEDS ORDERED: AMOCLA500 PO (11:20)
[2019-03-13] MEDS ORDERED: Duoneb 2.5-0.5 M3 ML INH (11:20)
[2019-03-13] MEDS ORDERED: Vsl#3 Capsule1 EACH PO (11:21)
[2019-03-13] MEDS ORDERED: VERA240ER PO (11:22)
[2019-03-13] MEDS ORDERED: PRED20 PO (11:23)
--- NOTE | 2019-03-13 12:03 | NUR ---
CBG 425, 18 UNITS HSS INSULIN GIVEN. DR REYES NOTIFIED, STATE STEROID RELATED, STEROIDS TAPERED SHOULD IMPROVE. PT NOTIFIED, ENCOURAGED TO MX BLOOD SUGAR @ HOME & RECORD FOR PCP, MAINTAIN LOW SUGAR/LOW CARB DIET. SHE STATES UNDERSTANDING.
--- NOTE | 2019-03-13 12:33 | NUR ---
DISCHARGE PT STATE BREATHING HAS IMPROVED. STATE NO SHORTNESS OF BREATH @ THIS TIME. LUGS ARE CLEAR. DR REYES IN TO SEE HER STATE SHE MAY GO HOME TODAY, PLACE ORDERS. FAXED TO [facility]/REQUEST. IV D/C INTACT. D/C INSTRUCT PROVIDED W EMPHASIS ON MX BLOOD SUGAR & F/U W PCP. SHE IS PLEASANT, APPRECIATIVE. STATE WAITING FOR TRANSPORTATION TO ARRIVE.
== END 2019-03-13 13:13 | disposition home or self-care (01) | DRG 189 ==
LOC: ER 20:12 → MEDS 23:12 → ENPENDDIS 03-13 11:32 → MEDS 03-13 13:13
PROVIDERS: Physician Assistant; ADMIT Hospitalist
DX: J96.01 Acute respiratory failure with hypoxia (principal); J45.51 Severe persistent asthma with (acute) exacerbation; I48.0 Paroxysmal atrial fibrillation; I10 Essential (primary) hypertension; E11.9 Type 2 diabetes mellitus without complications; G47.33 Obstructive sleep apnea (adult) (pediatric); J32.9 Chronic sinusitis, unspecified; E78.5 Hyperlipidemia, unspecified; Z88.6 Allergy status to analgesic agent; Z88.8 Allergy status to other drugs, medicaments and biological substances; Z79.4 Long term (current) use of insulin; Z79.84 Long term (current) use of oral hypoglycemic drugs; Z79.51 Long term (current) use of inhaled steroids; Z79.899 Other long term (current) drug therapy
CPT/HCPCS: 36415; 71045; 80053; 82947; 85025; 87081; 87804; 94640; 94644; 94760; 96365; 96375; 99285-25; J1650; J2930; J3475; J7030

== ENCOUNTER → 2023-10-20 | Outpatient (CLI) | payer OTHER ==
[~2023-10-20] MED LIST changes: +AMOCLA500 PO; +Duoneb 2.5-0.5 M3 ML INH; +LEVSOD100 PO; +Synthroid137 MCG PO; +Vsl#3 Capsule1 EACH PO
== END ==
LOC: LAB 17:34 → LAB SHORT 17:34
DX: R30.0 Dysuria (principal)
CPT/HCPCS: 87077; 87086; 87186

== ENCOUNTER → 2024-08-02 | Outpatient (CLI) | payer OTHER | LOC: LAB SHORT 18:49 → LAB 18:49 | DX: N89.8 Other specified noninflammatory disorders of vagina (principal); R32 Unspecified urinary incontinence | CPT/HCPCS: 87070; 87077; 87086; 87186; 87205 ==